=== PATIENT | female | born 1985 | race Two or more races ===

== ENCOUNTER 2022-09-18 17:59 | Emergency (ER) | payer SELFPAY ==
[~2022-09-18] VITALS: Ht 167.6 cm; Wt 69.0 kg
[2022-09-18 18:24] VITALS: BP 147/93
[2022-09-18] MEDS ORDERED: BACDST PO (18:36)
[2022-09-18] MEDS ORDERED: cefTRIAXone SOD 1,000 MG VL IM ONE (18:45)
== END 2022-09-18 21:44 | disposition home or self-care (01) ==
LOC: ER 17:59
DX: L03.113 Cellulitis of right upper limb (principal); F15.10 Other stimulant abuse, uncomplicated; Z59.00 Homelessness unspecified
CPT/HCPCS: 96372; 99283; J0696